=== PATIENT | female | born 1990 | race Two or more races ===

== ENCOUNTER 2016-09-22 22:31 | Emergency (ER) | payer OTHER ==
[~2016-09-22] VITALS: Ht 157.5 cm; Wt 64.3 kg
[~2016-09-22 22:31] MED LIST: DOXYCYCLINE HY100 MG PO; MOTRIN600 MG PO; Motrin PO; NAPROXEN500 MG PO; NOHOMEMEDS; PERCOCET 5/31 TABLET PO
[2016-09-23] MEDS ORDERED: NAPROSYN500 MG PO (02:59)
[2016-09-23 04:07] VITALS: BP 124/91
[2016-09-23] MEDS ORDERED: PERCOCET 5/31 TABLET PO (04:08)
[2016-09-25] MEDS ORDERED: NAPROSYN500 MG PO (09:25)
[2016-09-25] MEDS ORDERED: TYLENOL WITH C1 EACH PO (09:27)
== END 2016-09-23 04:12 | disposition home or self-care (01) ==
LOC: EME 22:31
DX: S59.292A Other physeal fracture of lower end of radius, left arm, initial encounter for closed fracture (principal); S52.612A Displaced fracture of left ulna styloid process, initial encounter for closed fracture; W10.9XXA Fall (on) (from) unspecified stairs and steps, initial encounter; F17.200 Nicotine dependence, unspecified, uncomplicated
CPT/HCPCS: 73100; 73110; 99281; 99285; J7030

== ENCOUNTER 2016-09-28 09:50 | Day surgery (SDC) | payer OTHER ==
[~2016-09-28] VITALS: Ht 157.5 cm; Wt 64.4 kg
[~2016-09-28 09:50] MED LIST changes: +NAPROSYN500 MG PO; +TYLENOL WITH C1 EACH PO
[2016-09-28 10:42] VITALS: BP 122/81
[2016-09-28 11:36] LABS: METH RESISTANT S AUREUS PCR NEGATIVE (NEGATIVE); PROBE CHECK PASS; SPECIMEN PROCESSING CONTROL PASS
[2016-09-28 13:05] VITALS: BP 108/56
[2016-09-28 13:43] VITALS: BP 110/59
== END 2016-09-28 13:55 | disposition home or self-care (01) ==
LOC: SDC 09:50
PROVIDERS: Orthopaedic Surgery
PROC: 0PSJXZZ Reposition Left Radius, External Approach (ICD-10-PCS; principal; 2016-09-28)
DX: S52.532A Colles' fracture of left radius, initial encounter for closed fracture (principal); F17.210 Nicotine dependence, cigarettes, uncomplicated; W19.XXXA Unspecified fall, initial encounter
CPT/HCPCS: 73100; 76000; 87641; J0330; J0690; J1100; J1170; J1885; J2250; J2405; J3010

== ENCOUNTER 2017-05-07 11:16 | Emergency (ER) | payer OTHER ==
[~2017-05-07] VITALS: Ht 157.5 cm; Wt 68.2 kg
[2017-05-07] MEDS ORDERED: PRENATAL TABLE1 EAC3 PO (15:34)
[2017-05-07] MEDS ORDERED: AUGMENTIN875 MG PO (17:30)
[2017-05-07] MEDS ORDERED: ZITHROMAX250 MG PO (17:30)
[2017-05-07 17:41] VITALS: BP 118/81
== END 2017-05-07 17:41 | disposition home or self-care (01) ==
LOC: EME 11:16
PROVIDERS: Nurse Practitioner Family
DX: O99.512 Diseases of the respiratory system complicating pregnancy, second trimester (principal); J18.9 Pneumonia, unspecified organism; J45.909 Unspecified asthma, uncomplicated; O99.332 Smoking (tobacco) complicating pregnancy, second trimester; F17.200 Nicotine dependence, unspecified, uncomplicated; Z3A.21 21 weeks gestation of pregnancy; O99.342 Other mental disorders complicating pregnancy, second trimester; F32.9 Major depressive disorder, single episode, unspecified
CPT/HCPCS: 71046; 87502; 99281; 99284

== ENCOUNTER 2017-08-15 12:29 | Inpatient (IN) | payer OTHER ==
[2017-08-15] VITALS (13 sets, daily range): BP systolic 101–131; BP diastolic 50–87
[~2017-08-15] VITALS: Ht 157.5 cm; Wt 67.7 kg
[~2017-08-15 12:29] MED LIST changes: +AUGMENTIN875 MG PO; +PRENATAL TABLE1 EAC3 PO; +ZITHROMAX250 MG PO
[2017-08-15 13:13] LABS: BASOPHIL (%) 0.4 % (0-1); BASOPHIL COUNT 0.1 K/uL (0-0.1); EOSINOPHIL (%) 1.1 % (0-5); EOSINOPHIL COUNT 0.2 K/uL (0-0.3); LYMPHOCYTE (%) 15.7 % (15-42); LYMPHOCYTE COUNT 2.1 K/uL (1.0-2.8); MCH 31.2 PG (29.0-34.0); MCHC 34.5 G/DL (30.0-36.0); MCV 90.3 FL (83-99); MONOCYTE (%) 5.4 % (3-12); MONOCYTE COUNT 0.7 K/uL (0-0.8); NEUTROPHIL (%) 76.4 % (45-76); NEUTROPHIL COUNT 10.2 K/uL (1.8-6.4); PLATELET COUNT 273 K/uL (156-360); RBC DIS.WIDTH-CV 13.6 % (11.8-14.6); RBC DIS.WIDTH-SD 44.9 % (39-53); RED BLOOD COUNT 3.21 M/uL (3.80-5.20); WHITE BLOOD COUNT 13.3 K/uL (4.1-10.2)
[2017-08-15] MEDS ORDERED: SUBOXONE 8 MG-1 EAC2 SL (13:13)
[2017-08-15 13:54] LABS: AMPHETAMINE NEGATIVE (500 ng/mL); BARBITURATES NEGATIVE (200 ng/mL); BENZODIAZEPINES NEGATIVE (150 ng/mL); BUPRENORPHINE PRESUMPTIVE POSITIVE (10 ng/mL); COCAINE NEGATIVE (150 ng/mL); METHADONE NEGATIVE (200 ng/mL); METHAMPHETAMINE NEGATIVE (500 ng/mL); OPIATES (MORPHINE) NEGATIVE (100 ng/mL); OXYCODONE PRESUMPTIVE POSITIVE (100 ng/mL); PHENCYCLIDINE NEGATIVE (25 ng/mL); PROPOXYPHENE NEGATIVE (300 ng/mL); THC CANNABINOIDS NEGATIVE (50 ng/mL); TRICYCLIC ANTIDEPRESSANTS NEGATIVE (300 ng/mL)
[2017-08-16] VITALS (13 sets, daily range): BP systolic 93–129; BP diastolic 51–68
[2017-08-16] MEDS ORDERED: IBUPROFEN800 MG PO (02:07)
[2017-08-18] MEDS ORDERED: WELLBUTRIN XL150 MG PO (07:59)
== END 2017-08-18 11:20 | disposition home or self-care (01) | DRG 775 ==
LOC: LDRP-OP 12:29 → 2WEST 12:31 → LDRP-OP 10-18 11:57
PROVIDERS: Nurse Practitioner
PROC: 3E0P7VZ Introduction of Hormone into Female Reproductive, Via Natural or Artificial Opening (ICD-10-PCS; 2017-08-15)
PROC: 10E0XZZ Delivery of Products of Conception, External Approach (ICD-10-PCS; principal; 2017-08-16)
DX: O42.013 Preterm premature rupture of membranes, onset of labor within 24 hours of rupture, third trimester (principal); O36.5930 Maternal care for other known or suspected poor fetal growth, third trimester, not applicable or unspecified; O99.02 Anemia complicating childbirth; D50.9 Iron deficiency anemia, unspecified; O99.52 Diseases of the respiratory system complicating childbirth; J45.909 Unspecified asthma, uncomplicated; O99.344 Other mental disorders complicating childbirth; F31.9 Bipolar disorder, unspecified; O99.324 Drug use complicating childbirth; F11.20 Opioid dependence, uncomplicated; O99.334 Smoking (tobacco) complicating childbirth; F17.210 Nicotine dependence, cigarettes, uncomplicated; O99.89 Other specified diseases and conditions complicating pregnancy, childbirth and the puerperium; M41.9 Scoliosis, unspecified; Z3A.35 35 weeks gestation of pregnancy; Z37.0 Single live birth
CPT/HCPCS: 85025; 87081; 88307; G0378; J0571; J0595; J0702; J2540; J7120